=== PATIENT | male | born 1960 | race Two or more races ===

== ENCOUNTER 2022-10-20 13:46 | Emergency (ER) | payer OTHER ==
[~2022-10-20] VITALS: Ht 182.9 cm; Wt 118.0 kg
[2022-10-20] MEDS ORDERED: ESCITALOPRAM OX10 MG PO (15:16)
[2022-10-20] MEDS ORDERED: ZPAK PO (17:08)
[2022-10-20] MEDS ORDERED: MEDDOSEPAK PO (17:08)
[2022-10-20] MEDS ORDERED: ROBITUSSIN AC10 ML PO (17:08)
[2022-10-20] MEDS ORDERED: ATORVASTATIN CA40 MG PO (17:11)
[2022-10-20] MEDS ORDERED: PROTONIX40 M2 PO (17:11)
[2022-10-20 17:12] VITALS: BP 140/89
[2022-10-20] MEDS ORDERED: NORVASC2.5 M1 PO ×2 (17:12→17:27)
[2022-10-20] MEDS ORDERED: VITAMIN B-12500 MCG PO (17:12)
[2022-10-20] MEDS ORDERED: ATACAND8 MG PO (17:31)
== END 2022-10-20 17:16 | disposition home or self-care (01) | DRG 203 ==
LOC: ED 13:46
DX: J40 Bronchitis, not specified as acute or chronic (principal)